=== PATIENT | female | born 1980 | race Caucasian/White ===

== ENCOUNTER 2024-06-27 15:06 | Emergency (ER) | payer MEDICAID ==
[2024-06-27 16:24] LABS: BASOPHILS ABSOLUTE AUTO 0.05 K/uL (0.00-0.10); BASOPHILS PERCENT AUTO 0.6 % (0.1-1.3); EOSINOPHILS ABSOLUTE AUTO 0.32 K/uL (0.00-0.40); EOSINOPHILS PERCENT AUTO 3.8 % (0.0-5.4); HEMOGLOBIN 12.8 g/dL (11.2-15.5); IMMATURE GRAN ABSOLUTE AUTO 0.03 K/uL (0.00-0.23); IMMATURE GRAN PERCENT AUTO 0.4 % (0.0-0.7); LYMPHOCYTES ABSOLUTE AUTO 2.41 K/uL (0.8-3.3); LYMPHOCYTES PERCENT AUTO 28.8 % (11.4-47.7); MEAN CORPUSCULAR HEMOGLOBIN 30.8 pg (31.6-35.5); MEAN CORPUSCULAR HGB CONC 33.7 g/dL (31.6-35.5); MEAN CORPUSCULAR VOLUME 91.6 fL (81.4-99.0); MONOCYTES ABSOLUTE AUTO 0.48 K/uL (0.20-0.90); MONOCYTES PERCENT AUTO 5.7 % (3.3-12.6); NEUTROPHILS ABSOLUTE AUTO 5.07 K/uL (1.0-7.6); NEUTROPHILS PERCENT AUTO 60.7 % (40.0-78.1); PLATELET COUNT,PLT 247 K/uL (130-375); RED BLOOD CELL COUNT 4.15 M/uL (3.77-5.24); WHITE BLOOD CELL COUNT,WBC 8.4 K/uL (3.2-11.0)
[2024-06-27 16:45] LABS: A/G RATIO 0.8 (1.2-2.2); ALANINE AMINOTRANSFERASE,ALT 30 U/L (12-78); ALBUMIN 2.7 g/dL (3.4-5.0); ALKALINE PHOSPHATASE 95 U/L (46-116); ANION GAP 4.5 mmol/L (5.0-14.0); ASPARTATE AMNIOTRANSFERASE,AST 14 U/L (15-37); BILIRUBIN TOTAL 0.3 mg/dL (0.2-1.0); BLOOD UREA NITROGEN,BUN 14 mg/dL (7-18); C-REACTIVE PROTEIN 1.07 mg/dL (<0.50); CALCIUM 8.9 mg/dL (8.5-10.1); CARBON DIOXIDE,CO2 32 mmol/L (21-32); CHLORIDE,CL 105 mmol/L (100-108); CREATININE 0.9 mg/dL (0.6-1.0); ESTIMATED GFR 80 mL/min (>60); GLUCOSE RANDOM 79 mg/dL (74-106); PROTEIN TOTAL,TP 6.2 g/dL (6.4-8.2); SODIUM,NA 141 mmol/L (140-148)
[2024-06-27 17:38] LABS: APPEARANCE,URINE CLOUDY (CLEAR); BILIRUBIN,URINE NEGATIVE (NEGATIVE); COLOR,URINE YELLOW (YELLOW); GLUCOSE,URINE NEGATIVE (NEGATIVE); KETONES,URINE NEGATIVE (NEGATIVE); LEUKOCYTE ESTERASE,URINE NEGATIVE (NEGATIVE); NITRITE,URINE NEGATIVE (NEGATIVE); OCCULT BLOOD,URINE NEGATIVE (NEGATIVE); PROTEIN,URINE NEGATIVE (NEGATIVE); UROBILINOGEN,URINE 0.2 EU/dL (0.2-1.0)
[2024-06-27 17:46] LABS: AMORPHOUS SEDIMENT,URINE NOT SEEN; BACTERIA,URINE FEW; EPITHELIAL CELLS,URINE MANY; MUCUS,URINE NOT SEEN; RBC,URINE 0-5 (0-5); WBC,URINE 0-5 (0-5)
== END 2024-06-27 18:18 | disposition home or self-care (01) ==
LOC: JP.ED 15:06
DX: R10.32 Left lower quadrant pain (principal); Z91.013 Allergy to seafood; Z79.899 Other long term (current) drug therapy
CPT/HCPCS: 36415; 74019; 74019-26; 80053; 81001; 83605; 85025; 86140; 99284

== ENCOUNTER 2024-11-03 06:36 | Day surgery (SDC) | payer MEDICAID ==
[2024-11-03] MEDS ORDERED: fentaNYL 100 MCG/2 ML SDV ONE (07:15)
[2024-11-03] MEDS ORDERED: Midazolam 1 MG/ML 2 ML SDV ONE (07:15)
[2024-11-03] MEDS ORDERED: Propofol 200 MG/20 ML SDV ONE (07:15)
[2024-11-03] MEDS: Lactated Ringers 1,000 ML IV SCH (07:46)
== END 2024-11-03 10:19 | disposition home or self-care (01) ==
LOC: JP.SDS 06:36
PROVIDERS: ATTEND Surgery
DX: Z12.11 Encounter for screening for malignant neoplasm of colon (principal); R10.13 Epigastric pain; Z91.013 Allergy to seafood; Z88.8 Allergy status to other drugs, medicaments and biological substances
CPT/HCPCS: 00813; 43239; 45378; J2250; J2704; J3010; J7120